=== PATIENT | female | born 1985 | race Caucasian/White ===

== ENCOUNTER 2016-10-13 08:01 | Emergency (ER) | payer SELFPAY ==
[2016-10-13 08:10] VITALS: BP 108/56; PULSE 79; TEMP 98.1; BMI 33.2
[2016-10-13] MEDS ORDERED: predniSONE 20 MG TABLET (UD) ONE (08:24)
[2016-10-13] MEDS ORDERED: AZITHROMYCIN 250 MG TABLET (FP) ONE (08:24)
[2016-10-13] MEDS ORDERED: ALBUTEROL SO4 2.5/IPRATROPIUM 0.5 INH SOL 3 ML VIAL.NEB. NEB ONE ×3 (08:25→08:37)
[2016-10-13] MEDS ORDERED: AZITHROMYCIN 250 MG TABLET (FP) PO ONE (08:36)
[2016-10-13] MEDS ORDERED: predniSONE 20 MG TABLET (UD) PO ONE (08:38)
--- NOTE | 2016-10-13 08:39 | PDOC ---
History of Present Illness - General Chief Complaint: Sore Throat Stated Complaint: SORE THROAT, COUGH Time Seen by Provider: 10/13/16 08:30 History Source: Patient, Friend Exam Limitations: No Limitations - History of Present Illness Initial Comments: 10/13/16 08:44 Is a repeat visit since the , yesterday for evaluation of persistent coughing and feelings of wheezing and chest tightness. But did not take temperature, has been using Tylenol for pain relief. Was seen and evaluated yesterday here and noted to have a negative influenza test, negative strep test , and a negative chest x-ray. Was diagnosed with a viral illness and prescribed quiet office and cough suppressant and Sudafed for decongestant. 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 Timing/Duration: reports: constant, changing over time, getting worse Severity: reports: moderate Associated Symptoms: reports: denies symptoms, chest pain/soreness, cough, dizziness, fever/chills, nasal congestion, nasal drainage, sore throat, wheezing Past History - Travel Traveled outside of the country in the last 30 days: No Close contact w/someone who was outside of country & ill: No - Past Medical History Allergies/Adverse Reactions: Allergies Allergy/AdvReac Type Severity Reaction Status Date / Time No Known Allergies Allergy Verified 10/13/16 08:10 Home Medications: Ambulatory Orders Guaifenesin [Robitussin] 10 ml PO Q6H #1 bottle MDD 40 10/12/16 Phenylephrine HCl [Nasal Decongestant PE] 10 mg PO BID PRN #20 tablet 10/12/16 Albuterol Sulfate Inhaler - [Ventolin HFA Inhaler -] 1 - 2 inh PO QID #1 inhaler 10/13/16 Azithromycin [Zithromax -] 250 mg PO UTDICT #6 tab 10/13/16 Prednisone [Deltasone -] 20 mg PO BID #10 tablet 10/13/16 Other medical history: denies - Immunization History Immunization Up to Date: (unknown) - Psycho/Social/Smoking Cessation Hx Suicidal Ideation: No Smoking History: Never smoked Have you smoked in the past 12 months: No Information on smoking cessation initiated: No Hx Alcohol Use: No Drug/Substance Use Hx: No Substance Use Type: None Review of Systems - Review of Systems Able to Perform ROS?: Yes Is the patient limited Nigerian proficient: Yes Constitutional: Yes: Symptoms Reported, See HPI, Chills, Fever, Loss of Appetite , Malaise, Weakness HEENTM: Yes: Symptoms Reported, See HPI, Nose Congestion, Throat Pain, Difficulty Swallowing Respiratory: Yes: Symptoms reported, See HPI, Cough, Shortness of Breath, Wheezing. No: Productive cough Cardiac (ROS): No: Symptoms Reported ABD/GI: No: Symptoms Reported Musculoskeletal: Yes: Symptoms Reported Integumentary: Yes: Symptoms Reported Neurological: Yes: Symptoms reported, See HPI, Headache All Other Systems: Reviewed and Negative *Physical Exam - Vital Signs Last Vital Signs Temp Pulse Resp BP Pulse Ox 98.1 F 79 18 108/56 97 10/13/16 08:07 10/13/16 08:07 10/13/16 08:07 10/13/16 08:07 10/13/16 08:07 - Physical Exam General Appearance: Yes: Nourished, Appropriately Dressed, Apparent Distress, Moderate Distress HEENT: positive: [place], Nasal Congestion, Rhinorrhea. negative: Pharyngeal Erythema (no swelling or exudate), TM Erythema Neck: positive: Tender, Supple, Lymphadenopathy (R), Lymphadenopathy (L) Respiratory/Chest: positive: Crackles, Rhonchi, Wheezing. negative: Lungs Clear Gastrointestinal/Abdominal: positive: Tender, Soft Musculoskeletal: positive: Normal Inspection Extremity: positive: Normal Capillary Refill, Normal Inspection, Normal Range of Motion Integumentary: positive: Normal Color, Dry, Warm Neurologic: positive: pizza baker II-XII NML intact, Fully Oriented, Alert, Normal Mood/ Affect, Normal Response, Motor Strength 5/5 Progress Note - Progress Note Progress Note: much resolved with conservative measures therefore we will initiate antibiotics , prednisone and for reactive airway and Proventil pump. *DC/Admit/Observation/Transfer Diagnosis at time of Disposition: Bronchitis - Discharge Dispostion Disposition: HOME Condition at time of disposition: Stable Admit: No - Referrals Referrals: [facility] [Provider Group] - Patient Instructions Printed Discharge Instructions: DI for Acute Bronchitis Additional Instructions: Rest, drink lots of fluids: Teas, water, soups, Pedialyte Saltwater gargles Steamy showers/seem to face break up mucus Avoid contact with others until fevers and cough resolved Lots of handwashing and good hygiene Continue [id number] medications for symptomatic relief Tylenol or Motrin for fever and pain continue Zithromax as directed Continue Prednisone 40mg daily for next 5 days May use Proventil Pump 2 puffs 4 times a day for next 3 days then as needed Followup with private physician in one to 2 days as needed Return to emergency department for worsened symptoms, fevers, dehydration - Post Discharge Activity Work/School Note: Back to Work
== END 2016-10-13 09:15 | disposition home or self-care (01) ==
LOC: JERFT 08:01
PROC: 3E0F7GC Introduction of Other Therapeutic Substance into Respiratory Tract, Via Natural or Artificial Opening (ICD-10-PCS; principal; 2016-10-13)
PROC: 3E0F7GC Introduction of Other Therapeutic Substance into Respiratory Tract, Via Natural or Artificial Opening (ICD-10-PCS; 2016-10-13)
DX: J40 Bronchitis, not specified as acute or chronic (principal)
CPT/HCPCS: 99281-25